=== PATIENT | female | born 1980 ===

== ENCOUNTER 2025-04-05 09:28 | Day surgery (SDC) | payer BC ==
[2025-04-03 09:34] VITALS: BP 119/74
[2025-04-03 09:39] LABS: URINE APPEARANCE Clear; URINE BILIRRUBIN Negative (NEGATIVE); URINE BLOOD Negative; URINE COLOR Yellow; URINE GLUCOSE Negative (NEGATIVE); URINE KETONE Negative (NEGATIVE); URINE LEUKOCYTE Trace; URINE NITRATE Negative; URINE PROTEIN Negative (NEGATIVE); URINE UROBILINOGEN 0.2 E.U./dl
[2025-04-03 09:43] LABS: URINE BACTERIA 9018.0 uL (0.0-1933); URINE EPITHELIAL CELLS 99.0 uL (0.0-38.8); URINE RBC 8.5 uL (0.0-20.8); URINE WBC 38.7 uL (0.0-23.2)
[2025-04-03 09:55] LABS: URINE CAST 0.58 uL (0.0-1.40)
[2025-04-03 10:12] LABS: INR 0.95
[2025-04-03 10:30] LABS: BUN CREA RATIO 18.0 (7.0-25.0); CREATININE SERUM 0.67 mg/dL (0.55-1.02); GFR 94.76; GLUCOSE FASTING 91.0 mg/dL (65-100); OSMOLALITY SERUM 279.0 MOSM/KG (275-295)
[2025-04-03 11:30] LABS: BASO % 0.6 % (0.1-1.2); EOS # 0.45 (0.04-0.54); EOS % 5.7 % (0.7-7.0); LYMPH # 2.47 (1.18-3.74); LYMPH % 31.3 % (19.3-53.1); MEAN PLATELET VOLUME 11.70 fl (9.4-12.4); MONO # 0.75 (0.24-0.82); MONO % 9.5 % (4.7-12.5); NEUT # 4.15 (1.56-6.13); NEUT % 52.8 % (34.0-71.1); RED CELL DISTRIBUTION WIDTH 14.5 % (11.6-14.4)
[~2025-04-05] VITALS: Ht 170.2 cm; Wt 68.0 kg
[~2025-04-05 09:28] MED LIST: LEVOTHYROXINE25 MCG
[2025-04-05] MEDS ORDERED: LIDOCAINE HCL 1%/EPINEPHRINE 20ML VIAL IJ ONE (11:15)
[2025-04-05] MEDS ORDERED: OXYMETAZOLINE HCL 15 ML NASAL DROPS NASAL ONE (11:15)
[2025-04-05] MEDS ORDERED: AMOX-CLAV 875-1 EACH PO (12:37)
[2025-04-05] MEDS ORDERED: AYR SALINE50 ML NASAL (12:38)
[2025-04-05] MEDS ORDERED: MORPHINE SULFATE 4 MG/ML VIAL IV ONE (13:35)
== END 2025-04-05 15:10 | disposition home or self-care (01) ==
LOC: CIR.AMB 09:28
PROVIDERS: ATTEND Otolaryngology Otology & Neurotology
DX: J32.4 Chronic pansinusitis (principal); J34.2 Deviated nasal septum; J34.3 Hypertrophy of nasal turbinates